=== PATIENT | female | born 1995 | race American Indian/Alaskan Native ===

== ENCOUNTER 2020-01-26 19:08 | Emergency (ER) | payer MEDICAID ==
--- NOTE | 2020-01-26 19:51 | Event Note ---
ED Screening Note Date of service: 01/26/20 Time: 19:50 ED Screening Note: Patient complains of abdominal pain and cramping times daily 14 weeks Denies vaginal bleeding or urinary symptoms This initial assessment/diagnostic orders/clinical plan/treatment(s) is/are subject to change based on patients health status, clinical progression and re- assessment by fellow clinical providers in the ED. Further treatment and workup at subsequent clinical providers discretion. Patient/guardian urged not to elope from the ED as their condition may be serious if not clinically assessed and managed. Initial orders include: Ultrasound Labs
[2020-01-26 20:38] LABS: Bacteria,Urine 1+ /HPF (Negative); Bilirubin,Urine NEG (Negative); Blood,Urine LG (Negative); Color,Urine Yellow (Yellow); Hyaline Casts,Urine 1 /LPF; Mucus,Urine 1+ /HPF; Protein,Urine <15 mg/dL mg/dL (Negative); Urobilinogen,Urine < 2.0 mg/dL (<2.0)
[2020-01-26 21:50] LABS: Basophils % (Auto) 0.1 % (0.0-1.8); Hematocrit 36.7 % (30.3-42.9); Hemoglobin 12.4 gm/dl (10.1-14.3); Lymphocytes # (Auto) 1.2 K/mm3 (1.2-5.4); Lymphocytes % (Auto) 5.8 % (13.4-35.0); Mean Corpuscular HGB Conc 34 % (30-34); Mean Corpuscular Volume 85 fl (79-97); Monocytes # (Auto) 0.8 K/mm3 (0.0-0.8); Monocytes % (Auto) 4.1 % (0.0-7.3); Platelet Count 267 K/mm3 (140-440); Red Blood Count 4.35 M/mm3 (3.65-5.03); Red Cell Distribution Width 13.1 % (13.2-15.2)
[2020-01-26 22:02] LABS: Alanine Aminotransferase 13 units/L (7-56); Blood Urea Nitrogen 4 mg/dL (7-17); Calcium 9.3 mg/dL (8.4-10.2); Hemolysis Index 2
[2020-01-26 22:09] LABS: BUN/Creatinine Ratio 7
--- NOTE | 2020-01-26 23:27 | Emergency Department Report ---
ED Female HPI - General Chief complaint: Abdominal Pain Stated complaint: 14 WEEKS , ABD PAIN, CHEST PAIN Time Seen by Provider: 01/26/20 19:48 Source: patient Mode of arrival: Ambulatory Limitations: No Limitations - History of Present Illness Initial comments: The patient was evaluated in the emergency department for symptoms described in the history of present illness. He/she was evaluated in the context of the global COVID-19 pandemic, which necessitated consideration that the patient might be at risk for infection with the virus that causes COVID-19. Institutional protocols and algorithms that pertain to the evaluation of patient s at risk for COVID-19 are in a state of rapid change based on information released by regulatory bodies including the CDC and federal and state organizations. These policies and algorithms were followed during the patient's care in the emergency department. Please note that these policies, procedures and recommendations changed on a rapid basis. 24-year-old -[place] female who reports she is 14 weeks comes in complaining of lower abdominal pain that started today. Patient complains of nausea and lightheadedness but no vomiting. 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 Patient reports her last menstrual period was October 16, 2019. She is 2 para 1. Patient denies any dysuria no vaginal bleeding no vaginal discharge. She does admit to chills no fevers nausea but no vomiting. She is followed by BUSINESS CONSULT Reyes Persaud and are stable. She reports her last BM was 11 AM. She reports that his upper back and chest pain as tightness with a deep breath while sitting. MD Complaint: pelvic pain Location: suprapubic, LLQ Radiation: non-radiating Severity: severe Severity scale (0 -10): 9 Quality: sharp, stabbing Consistency: constant Improves with: none Are you Now?: Yes Last Menstrual Period: 10/16/19 EDC: 07/22/20 Associated Symptoms: nausea/vomiting (No vomiting), fever/chills (No fever). denies: vaginal bleeding, dysuria, hematuria - Related Data Sexually active: Yes : 2 Para: 1 Previous Rx's Medication Instructions Recorded Last Taken Type Fluconazole (Nf) [Diflucan TAB] 150 mg PO ONCE #2 tablet 10/19/19 Unknown Rx Sulfamethoxazole/Trimethoprim 1 each PO BID #10 tablet 10/19/19 Unknown Rx [Bactrim DS TAB] miSOPROStoL [Cytotec] 800 mcg PO QID 1 Days #4 tablet 01/27/20 Unknown Rx Allergies Allergy/AdvReac Type Severity Reaction Status Date / Time Penicillins Allergy Unknown Verified 10/19/19 15:00 ED Review of Systems ROS: Stated complaint: 14 WEEKS , ABD PAIN, CHEST PAIN Other details as noted in HPI Comment: All other systems reviewed and negative Constitutional: chills Eyes: denies: eye pain, eye discharge, vision change ENT: denies: ear pain, throat pain Gastrointestinal: abdominal pain, nausea. denies: vomiting, diarrhea, constipation Genitourinary: denies: urgency, dysuria, discharge Musculoskeletal: back pain Psychiatric: denies: anxiety, depression Hematological/Lymphatic: denies: easy bleeding, easy bruising ED Past Medical Hx - Surgical History Hx Appendectomy: Yes - Social History Smoking Status: Never Smoker - Medications Home Medications: Home Medications Medication Instructions Recorded Confirmed Last Taken Type Fluconazole (Nf) [Diflucan TAB] 150 mg PO ONCE #2 tablet 10/19/19 Unknown Rx Sulfamethoxazole/Trimethoprim 1 each PO BID #10 tablet 10/19/19 Unknown Rx [Bactrim DS TAB] miSOPROStoL [Cytotec] 800 mcg PO QID 1 Days #4 tablet 01/27/20 Unknown Rx ED Physical Exam - General Limitations: No Limitations General appearance: alert, in no apparent distress - ENT ENT exam: Present: mucous membranes moist - Neck Neck exam: Present: normal inspection, full ROM - Respiratory Respiratory exam: Present: normal lung sounds bilaterally - GI/Abdominal GI/Abdominal exam: Present: soft, tenderness. Absent: distended - Extremities Exam Extremities exam: Present: full ROM - Back Exam Back exam: Present: normal inspection - Neurological Exam Neurological exam: Present: alert, oriented X3 ED Course Vital Signs 01/26/20 19:50 Temperature 98.3 F Pulse Rate 118 H Respiratory 18 Rate Blood Pressure 115/71 O2 Sat by Pulse 100 Oximetry - Reevaluation(s) Reevaluation #1: 01/27/20 01:[address] Villanueva BUSINESS CONSULT [phone] regarding patient he recommends Cytotec 200 mg today and then 800 mg tomorrow with patient to follow-up with her primary BUSINESS CONSULT tomorrow. Reevaluation #2: 01/27/20 02:[address] Villanueva BUSINESS CONSULT on-call informing the lactic acid 2.4. He states give her the Cytotec have her follow-up with her BUSINESS CONSULT in the morning. Patient appears to be stable afebrile normal vital signs. ED Medical Decision Making - Lab Data Result diagrams: 01/26/20 21:23 01/26/20 21:23 - Radiology Data Radiology results: report reviewed Referring Physician:CHANO ROJASPatient Name:URBAN DORANPatient ID:[id number] of :[id number]:FemaleAccession:[id number] Date:4734-02-31Legtgm Status:Finalized Findings [facility] [address] [place] [address] Ultrasound Report Signed Patient: URBAN DORAN MR#: [id number] : 1995 Acct:[id number] Age/Sex: 24 / F ADM Date: 01/26/20 Loc: ED Attending Dr: Ordering Physician: CHANO ROJAS Date of Service: 01/26/20 Procedure(s): US OB <= 14 weeks fetus Accession Number(s): [id number] cc: CHANO ROJAS ULTRASOUND OBSTETRIC INDICATION / CLINICAL INFORMATION: abdominal pain, 14 weeks . TECHNIQUE: Transabdominal. COMPARISON: None available. FINDINGS: GESTATIONAL SAC: Well-defined oval shape and intrauterine in location. YOLK SAC: No significant abnormality. EMBRYO/FETUS: No significant abnormality. - Osborne-Rump Length = 5.16 cm = 11.6 weeks.days - Heart Rate, beats per minute (if present) = none ADNEXA: No significant abnormality. FREE FLUID: None. ADDITIONAL FINDINGS: None. IMPRESSION: No heart movements identified, suggesting demise. Signer Name: Villa Menezes MD Signed: 01/27/2020 12:05 AM Workstation Name: [id number] Transcribed By: LORRAINE Dictated By: Villa Menezes MD Electronically Authenticated By: Villa Menezes MD Signed Date/Time: 01/27/20 0005 DD/ 0004 TD/TT: - Medical Decision Making 24-year-old -[place] female who reports she is 14 weeks comes in complaining of lower abdominal pain that started today. Patient complains of nausea and lightheadedness but no vomiting. 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 Patient reports her last menstrual period was October 16, 2019. She is 2 para 1. Patient denies any dysuria no vaginal bleeding no vaginal discharge. She does admit to chills no fevers nausea but no vomiting. She is followed by BUSINESS CONSULT Reyes Persaud and are stable. She reports her last BM was 11 AM. She reports that his upper back and chest pain as tightness with a deep breath while sitting. Critical care attestation.: If time is entered above; I have spent that time in minutes in the direct care of this critically ill patient, excluding procedure time. ED Disposition Clinical Impression: demise Disposition: DC-01 TO HOME OR SELFCARE Is pt being admited?: No Does the pt Need Aspirin: No Condition: Stable Instructions: Abdominal Pain (ED), Demise Additional Instructions: Take Cytotec tomorrow for pills. It is very important for you to follow-up with your BUSINESS CONSULT tomorrow. Tylenol as needed for pain. Prescriptions: miSOPROStoL [Cytotec] 800 mcg PO QID 1 Days #4 tablet Referrals: PRIMARY CAREMD [Primary Care Provider] - 3-5 Days Reyes Lerner BUSINESS CONSULT [Other] - 3-5 Days Forms: Work/School Release Form(ED)
[2020-01-26] MEDS ORDERED: ACETAMINOPHEN 325 MG TAB PO ONE (23:29)
--- NOTE | 2020-01-27 00:06 | Ultrasound Report ---
ULTRASOUND OBSTETRIC INDICATION / CLINICAL INFORMATION: abdominal pain, 14 weeks . TECHNIQUE: Transabdominal. COMPARISON: None available. FINDINGS: GESTATIONAL SAC: Well-defined oval shape and intrauterine in location. YOLK SAC: No significant abnormality. EMBRYO/FETUS: No significant abnormality. - Bonney-Rump Length = 5.16 cm = 11.6 weeks.days - Heart Rate, beats per minute (if present) = none ADNEXA: No significant abnormality. FREE FLUID: None. ADDITIONAL FINDINGS: None. IMPRESSION: No heart movements identified, suggesting demise. Signer Name: Villa Menezes MD Signed: 01/27/2020 12:05 AM Workstation Name: [email or web address]
[2020-01-27 01:29] VITALS: BP 129/62
[2020-01-27] MEDS: miSOPROStol 200 MCG TAB PO ONE ×2 (01:47→01:49)
== END 2020-01-27 02:15 | disposition home or self-care (01) ==
LOC: ED 19:08
DX: O36.4XX0 Maternal care for intrauterine death, not applicable or unspecified (principal); Z3A.14 14 weeks gestation of pregnancy; Z90.49 Acquired absence of other specified parts of digestive tract; Z79.899 Other long term (current) drug therapy; Z88.0 Allergy status to penicillin
CPT/HCPCS: 36415; 76801; 80053; 81001; 82140; 83690; 84702; 85025; 87210; 87591

== ENCOUNTER 2020-01-27 11:01 | Emergency (ER) | payer SELFPAY ==
[2020-01-27 11:25] LABS: Basophils # (Auto) 0.1 K/mm3 (0.0-0.1); Basophils % (Auto) 0.3 % (0.0-1.8); Eosinophils % (Auto) 0.1 % (0.0-4.3); Hematocrit 31.2 % (30.3-42.9); Lymphocytes # (Auto) 2.4 K/mm3 (1.2-5.4); Mean Corpuscular HGB Conc 35 % (30-34); Mean Corpuscular Volume 83 fl (79-97); Monocytes # (Auto) 0.9 K/mm3 (0.0-0.8); Platelet Count 273 K/mm3 (140-440); Red Blood Count 3.74 M/mm3 (3.65-5.03); Red Cell Distribution Width 13.2 % (13.2-15.2)
--- NOTE | 2020-01-27 11:25 | Emergency Department Report ---
Blank Doc - Documentation Documentation: 24-year-old female that presents with near syncope, dizziness, and weakness. Patient was seen last night in the ED and started to have vaginal bleeding with clots this morning. This initial assessment/diagnostic orders/clinical plan/treatment(s) is/are subject to change based on patient's health status, clinical progression and re- assessment by fellow clinical providers in the ED. Further treatment and workup at subsequent clinical providers discretion. Patient/guardians urged not to elope from the ED as their condition may be serious if not clinically assessed and managed. Initial orders include: 1- Patient sent to [facility] for further evaluation and treatment 2- labs 3- UA 4- US OB
[2020-01-27 11:47] LABS: Alanine Aminotransferase 11 units/L (7-56); Albumin 3.6 g/dL (3.9-5); Blood Urea Nitrogen 5 mg/dL (7-17); Hemolysis Index 2
[2020-01-27 11:49] LABS: BUN/Creatinine Ratio 7
--- NOTE | 2020-01-27 12:26 | Emergency Department Report ---
ED General Adult HPI - General Chief complaint: Syncope Stated complaint: BODY ACHES Time Seen by Provider: 01/27/20 11:04 Source: patient Mode of arrival: Ambulatory Limitations: No Limitations - History of Present Illness Initial comments: This is a 24-year-old female presenting for evaluation of syncope and heavy vaginal bleeding. She reports that she was seen here last night and review of records shows that she was seen here due to abdominal pain and , ultrasound showed a nonviable at 11 weeks and her OB was consulted who requested Cytotec and outpatient follow-up today. She says she has not yet made up follow-up appointment. She returns this morning because she has had heavy vaginal bleeding since about 3 AM and actually had a syncopal episode. She states she did not injure herself during that episode and states that she continues to have lower abdominal discomfort along with vaginal bleeding with clots. Onset gradual, severity moderate to severe, no modifying factors. Severity scale (0 -10): 0 - Related Data Previous Rx's Medication Instructions Recorded Last Taken Type Fluconazole (Nf) [Diflucan TAB] 150 mg PO ONCE #2 tablet 10/19/19 Unknown Rx Sulfamethoxazole/Trimethoprim 1 each PO BID #10 tablet 10/19/19 Unknown Rx [Bactrim DS TAB] Methylergonovine [Methergine] 0.2 mg PO Q8HR #14 tablet 01/27/20 Unknown Rx miSOPROStoL [Cytotec] 800 mcg PO QID 1 Days #4 tablet 01/27/20 Unknown Rx Allergies Allergy/AdvReac Type Severity Reaction Status Date / Time Penicillins Allergy Unknown Verified 10/19/19 15:00 ED Review of Systems ROS: Stated complaint: BODY ACHES Other details as noted in HPI Comment: All other systems reviewed and negative Genitourinary: as per HPI ED Past Medical Hx - Surgical History Hx Appendectomy: Yes - Social History Smoking Status: Never Smoker - Medications Home Medications: Home Medications Medication Instructions Recorded Confirmed Last Taken Type Fluconazole (Nf) [Diflucan TAB] 150 mg PO ONCE #2 tablet 10/19/19 Unknown Rx Sulfamethoxazole/Trimethoprim 1 each PO BID #10 tablet 10/19/19 Unknown Rx [Bactrim DS TAB] Methylergonovine [Methergine] 0.2 mg PO Q8HR #14 tablet 01/27/20 Unknown Rx miSOPROStoL [Cytotec] 800 mcg PO QID 1 Days #4 tablet 01/27/20 Unknown Rx ED Physical Exam - General Limitations: No Limitations General appearance: alert, in no apparent distress - Head Head exam: Present: atraumatic, normocephalic - Eye Eye exam: Present: normal appearance - ENT ENT exam: Present: mucous membranes moist - Neck Neck exam: Present: normal inspection - Respiratory Respiratory exam: Present: normal lung sounds bilaterally. Absent: respiratory distress - Cardiovascular Cardiovascular Exam: Present: regular rate, normal rhythm. Absent: systolic murmur, diastolic murmur, rubs, gallop - GI/Abdominal GI/Abdominal exam: Present: soft, tenderness (Mild lower abdominal), normal bowel sounds. Absent: distended, guarding, rebound - Extremities Exam Extremities exam: Present: normal inspection - Back Exam Back exam: Present: normal inspection - Neurological Exam Neurological exam: Present: alert, oriented X3 - Psychiatric Psychiatric exam: Present: normal affect, normal mood - Skin Skin exam: Present: warm, dry, intact, normal color. Absent: rash ED Course Vital Signs 01/27/20 01/27/20 01/27/20 11:08 14:49 15:34 Temperature 98.2 F Pulse Rate 103 H 97 H Respiratory 19 18 Rate Blood Pressure 108/68 Blood Pressure 106/77 [Right] O2 Sat by Pulse 98 99 98 Oximetry ED Medical Decision Making - Lab Data Result diagrams: 01/27/20 11:11 01/27/20 11:11 - Radiology Data Radiology results: report reviewed Thickened heterogeneous endometrium - Medical Decision Making Patient presenting with heavy vaginal bleeding after being given Cytotec last night due to a nonviable . She also had a syncopal episode but no injury. Exam here reveals lower abdominal tenderness but no rigidity. She is nontoxic in appearance and in no distress. We will check labs, repeat ultrasound. Ultrasound shows thickened heterogeneous endometrium, hCG has decreased. Her vital signs remained stable, her hemoglobin has dropped from 12.4-11 though this does not seem significant at this time. I did perform a pelvic exam chaperoned by Nirmala lopez rate engineer which does reveal a moderate amount of bleeding with a few clots noted in the canal. This is expected after taking Cytotec. I attempted to place multiple calls to ELECTROLYSIS NEEDLE OPERATOR on-call with no call back. She does see a different ELECTROLYSIS NEEDLE OPERATOR group that does not come to this facility and they did tell her that they could see her on Friday but that is the earliest appointment that they have. I discussed her findings today with my attending physician, Dr. Cedeño who recommends Methergine and outpatient follow-up. I discussed return precautions with the patient and she agrees with this plan. - Differential Diagnosis Miscarriage, incomplete miscarriage, anemia Critical care attestation.: If time is entered above; I have spent that time in minutes in the direct care of this critically ill patient, excluding procedure time. ED Disposition Clinical Impression: Miscarriage Disposition: DC- TO HOME OR SELFCARE Is pt being admited?: No Condition: Stable Instructions: Miscarriage Prescriptions: Methylergonovine [Methergine] 0.2 mg PO Q8HR #14 tablet Referrals: PRIMARY CAREMD [Primary Care Provider] - 3-5 Days ARGELIA AMADOR MD [Staff Physician] - 24 Hours Time of Disposition: 16:35
--- NOTE | 2020-01-27 15:30 | Ultrasound Report ---
ULTRASOUND PELVIS INDICATION / CLINICAL INFORMATION: vaginal bleeding. TECHNIQUE: Transvaginal Duplex Color Doppler used: Yes. COMPARISON: None available FINDINGS: UTERUS: Uterus appears enlarged. The endometrial stripe is thickened and heterogeneous, measuring up to 2.8 cm. RIGHT ADNEXA: No significant ovarian cyst or mass. Normal color Doppler blood flow. LEFT ADNEXA: No significant ovarian cyst or mass. Normal color Doppler blood flow. FREE FLUID: None. ADDITIONAL FINDINGS: None. IMPRESSION: 1. Thickened and heterogeneous endometrial stripe, which likely physiologic in a patient this age. 2. Normal sonographic appearance of the ovaries. Signer Name: Diaz Martel MD Signed: 01/27/2020 3:26 PM Workstation Name: [email or web address]
[2020-01-27 15:36] VITALS: BP 108/68
[2020-01-27] MEDS ORDERED: METHYLERGONOVINE 0.2 MG TABLET PO ONE (16:05)
--- NOTE | 2020-01-27 18:24 | Ultrasound Report ---
Please see concurrent transvaginal ultrasound report (AND ADDENDUM) for further details. Signer Name: Diaz Martel MD Signed: 01/27/2020 6:20 PM Workstation Name: [id number]
== END 2020-01-27 16:50 | disposition home or self-care (01) ==
LOC: ED 11:01
DX: O03.9 Complete or unspecified spontaneous abortion without complication (principal); Z90.49 Acquired absence of other specified parts of digestive tract; Z79.899 Other long term (current) drug therapy; Z88.0 Allergy status to penicillin; Z3A.11 11 weeks gestation of pregnancy
CPT/HCPCS: 36415; 76830; 76856; 80053; 84702; 85025; 86850; 86900; 86901

== ENCOUNTER 2020-03-26 15:18 | Emergency (ER) | payer SELFPAY ==
[2020-03-26 15:36] VITALS: BP 115/80
--- NOTE | 2020-03-26 15:46 | Emergency Department Report ---
ED Upper Extremity Inj HPI - General Chief Complaint: Shoulder Injury Stated Complaint: RT ARM PAIN Time Seen by Provider: 03/26/20 15:36 Source: patient Mode of arrival: Ambulatory Limitations: No Limitations - History of Present Illness Initial Comments: Patient is a 24-year-old female presents emergency room complaints of right shoulder pain that began yesterday. She states last night she was rollerskating and she accidentally tripped with her skates on and tried to catch herself against the wall and fell and hit her right shoulder on the ground. She states since then she has had right shoulder pain. She denies ever injuring in the past. She denies any numbness or weakness. No past medical history. No allergies to medications. Allergy to penicillin. [facility] 03/03/2020 - Related Data Previous Rx's Medication Instructions Recorded Last Taken Type Fluconazole (Nf) [Diflucan TAB] 150 mg PO ONCE #2 tablet 10/19/19 Unknown Rx Sulfamethoxazole/Trimethoprim 1 each PO BID #10 tablet 10/19/19 Unknown Rx [Bactrim DS TAB] Methylergonovine [Methergine] 0.2 mg PO Q8HR #14 tablet 01/27/20 Unknown Rx miSOPROStoL [Cytotec] 800 mcg PO QID 1 Days #4 tablet 01/27/20 Unknown Rx Menthol/Camphor [[place] 1 applicatio TP BID #18 oint...g. 03/26/20 Unknown Rx Ointment] Naproxen [EC-Naprosyn] 500 mg PO BID PRN #14 tablet. 03/26/20 Unknown Rx Allergies Allergy/AdvReac Type Severity Reaction Status Date / Time Penicillins Allergy Unknown Verified 10/19/19 15:00 ED Review of Systems ROS: Stated complaint: RT ARM PAIN Other details as noted in HPI Comment: All other systems reviewed and negative ED Past Medical Hx - Past Medical History Previous Medical History?: No - Surgical History Past Surgical History?: Yes Hx Appendectomy: Yes - Social History Smoking Status: Never Smoker Substance Use Type: Alcohol - Medications Home Medications: Home Medications Medication Instructions Recorded Confirmed Last Taken Type Fluconazole (Nf) [Diflucan TAB] 150 mg PO ONCE #2 tablet 10/19/19 Unknown Rx Sulfamethoxazole/Trimethoprim 1 each PO BID #10 tablet 10/19/19 Unknown Rx [Bactrim DS TAB] Methylergonovine [Methergine] 0.2 mg PO Q8HR #14 tablet 01/27/20 Unknown Rx miSOPROStoL [Cytotec] 800 mcg PO QID 1 Days #4 tablet 01/27/20 Unknown Rx Menthol/Camphor [[place] 1 applicatio TP BID #18 oint...g. 03/26/20 Unknown Rx Ointment] Naproxen [EC-Naprosyn] 500 mg PO BID PRN #14 tablet. 03/26/20 Unknown Rx ED Physical Exam - General Limitations: No Limitations General appearance: alert, in no apparent distress - Head Head exam: Present: atraumatic, normocephalic - Eye Eye exam: Present: normal appearance - ENT ENT exam: Present: mucous membranes moist - Respiratory Respiratory exam: Absent: respiratory distress, accessory muscle use - Extremities Exam Extremities exam: Present: other (ttp to the right lateral shoulder and right posterior shoulder, no AC joint ttp, no clavicular ttp, clavicles are equal, no sulcus sign, FROM of the RUE, no deformity, no ecchymosis, no edema, pain with full flexion of the right shoulder, neurovascularly intact) - Neurological Exam Neurological exam: Present: alert, oriented X3 - Psychiatric Psychiatric exam: Present: normal affect, normal mood - Skin Skin exam: Present: warm, dry, intact ED Course Vital Signs 03/26/20 15:25 Temperature 99.1 F Pulse Rate 106 H Respiratory 22 Rate Blood Pressure 115/80 O2 Sat by Pulse 98 Oximetry ED Medical Decision Making - Radiology Data Radiology results: report reviewed Ordering Physician: ANNIE LAINEZ Date of Service: 03/26/20 Procedure(s): XR shoulder 2+V RT Accession Number(s): [id number] cc: ANNIE LAINEZ Fluoro Time In Minutes: XR shoulder 2+V RT INDICATION: right shoulder pain after fall. COMPARISON: No relevant prior imaging study available. FINDINGS: No acute skeletal abnormality. No significant soft tissue abnormality. IMPRESSION: 1. No acute findings. Signer Name: Álvaro Putnam MD Signed: 03/26/2020 5:01 PM Workstation Name: [id number] Transcribed By: DIANA Dictated By: Álvaro Putnam MD Electronically Authenticated By: Álvaro Putnam MD Signed Date/Time: 03/26/201700 DD/ 00 TD/TT: - Medical Decision Making Patient is a 24-year-old female presents emergency room complaints of right shoulder pain that began yesterday. She states last night she was rollerskating and she accidentally tripped with her skates on and tried to catch herself against the wall and fell and hit her right shoulder on the ground. She states since then she has had right shoulder pain. She denies ever injuring in the past. She denies any numbness or weakness. No past medical history. No allergies to medications. Allergy to penicillin. [facility] 03/03/2020. VSS. on exam: ttp to the right lateral shoulder and right posterior shoulder, no AC joint ttp, no clavicular ttp, clavicles are equal, no sulcus sign, FROM of the RUE, no deformity, no ecchymosis, no edema, pain with full flexion of the right shoulder, neurovascularly intact. XR right shoulder:1. No acute findings. Discussed x-ray findings with patient. Discussed importance of follow-up. Discussed return precautions. Patient given prescription for naproxen and [place] balm ointment. Advised patient Please use medication as prescribed as needed. May use ice for 15 minutes at a time, rest, elevation of the arm. Follow-up with orthopedic doctor. Return to emergency room for any new or worsening symptoms. Critical care attestation.: If time is entered above; I have spent that time in minutes in the direct care of this critically ill patient, excluding procedure time. ED Disposition Clinical Impression: Right shoulder pain Qualifiers: Chronicity: acute Qualified Code(s): M25.511 - Pain in right shoulder Fall Qualifiers: Encounter type: initial encounter Qualified Code(s): W19.XXXA - Unspecified fall, initial encounter Disposition: - TO HOME OR SELFCARE Is pt being admited?: No Does the pt Need Aspirin: No Condition: Stable Instructions: Shoulder Pain Additional Instructions: Please use medication as prescribed as needed. May use ice for 15 minutes at a time, rest, elevation of the arm. Follow-up with orthopedic doctor. Return to emergency room for any new or worsening symptoms. Prescriptions: Naproxen [EC-Naprosyn] 500 mg PO BID PRN #14 tablet.dr BROOKS Reason: pain Menthol/Camphor [[place] Ointment] 1 applicatio TP BID #18 oint...g. Referrals: PRIMARY CAREMD [Primary Care Provider] - 3-5 Days [facility] [Provider Group] - 3-5 Days SOBIA FOX MD [Staff Physician] - 3-5 Days Forms: Work/School Release Form(ED) Time of Disposition: 17:17 Print Language: ZAMBIAN
[2020-03-26 16:34] LABS: HCG Qualitative,Urine Negative (Negative)
--- NOTE | 2020-03-26 17:05 | XRay Report ---
XR shoulder 2+V RT INDICATION: right shoulder pain after fall. COMPARISON: No relevant prior imaging study available. FINDINGS: No acute skeletal abnormality. No significant soft tissue abnormality. IMPRESSION: 1. No acute findings. Signer Name: Álvaro Putnam MD Signed: 03/26/2020 5:01 PM Workstation Name: [id number]
== END 2020-03-26 17:38 | disposition home or self-care (01) ==
LOC: ED 15:18
DX: M25.511 Pain in right shoulder (principal); Z88.0 Allergy status to penicillin; Z79.899 Other long term (current) drug therapy; Z90.49 Acquired absence of other specified parts of digestive tract; W01.0XXA Fall on same level from slipping, tripping and stumbling without subsequent striking against object, initial encounter; Y93.51 Activity, roller skating (inline) and skateboarding; Y92.89 Other specified places as the place of occurrence of the external cause; Y99.8 Other external cause status
CPT/HCPCS: 81025

== ENCOUNTER 2020-05-10 06:38 | Emergency (ER) | payer MEDICAID ==
--- NOTE | 2020-05-10 06:47 | Event Note ---
ED Screening Note Date of service: 05/10/20 Time: 06:44 ED Screening Note: pt is a 4 y/o aaf who presents for complain of abdminal pain and cramping x symptoms are rated at 4/10 , exacerbated by nothing, relieved by nothing, symptoms are exacerbating migraine headaches, chronic condition. there has been no fever or chills, LMP 2 weeks ago This initial assessment/diagnostic orders/clinical plan/treatment(s) is/are subject to change based on patients health status, clinical progression and re- assessment by fellow clinical providers in the ED. Further treatment and workup at subsequent clinical providers discretion. Patient/guardian urged not to elope from the ED as their condition may be serious if not clinically assessed and managed. Initial orders include: ua, hcg
[2020-05-10 07:41] LABS: HCG Qualitative,Urine Negative (Negative)
[2020-05-10 07:50] LABS: Bacteria,Urine 2+ /HPF (Negative); Bilirubin,Urine NEG (Negative); Blood,Urine MOD (Negative); Color,Urine Yellow (Yellow); Mucus,Urine FEW /HPF; Protein,Urine <15 mg/dL mg/dL (Negative); Urobilinogen,Urine < 2.0 mg/dL (<2.0)
--- NOTE | 2020-05-10 08:18 | Emergency Department Report ---
ED Headache HPI - General Chief Complaint: Headache Stated Complaint: HEADACHE;STOMACH CRAMPS Time Seen by Provider: 05/10/20 07:46 Source: patient Exam Limitations: no limitations - History of Present Illness Initial Comments: 24-year-old female presents to ED with headache x2 weeks. Patient reports she has had a history of chronic headaches since she was a child. Patient states the headaches went away for several years, however returned 2 weeks ago. Patient states headache is located in a bandlike area around her head, pressure- like in the bilateral temples. Patient reports associated nausea. She denies vomiting, fever, neck pain, visual changes, URI symptoms. She denies any Covid symptoms or any known exposure to anyone who has tested positive for COVID-19. Patient reports some mild intermittent dizziness. She states her headache is usually improved when she wakes up, however worsens every day around noon. Patient states she takes extra strength Tylenol which seems to help. She also reports some lower abdominal and lower back pain with associated urinary frequency. She denies any dysuria, hematuria, vaginal discharge or bleeding. She denies any missed periods. Timing/Duration: other (2 weeks) Quality: moderate, pressure Modifying Factors: improves with: medication (tylenol) Associated Symptoms: denies: fever/chills, nausea/vomiting, nasal congestion, stiff neck, vision changes, weakness Allergies/Adverse Reactions: Allergies Penicillins Allergy (Verified 10/19/19 15:00) Unknown Home Medications: Ambulatory Orders Fluconazole (Nf) [Diflucan TAB] 150 mg PO ONCE #2 tablet 10/19/19 Sulfamethoxazole/Trimethoprim [Bactrim DS TAB] 1 each PO BID #10 tablet 10/19/19 Methylergonovine [Methergine] 0.2 mg PO Q8HR #14 tablet 01/27/20 miSOPROStoL [Cytotec] 800 mcg PO QID 1 Days #4 tablet 01/27/20 Menthol/Camphor [Isabel Horatio Ointment] 1 applicatio TP BID #18 oint...g. 03/26/20 Naproxen [EC-Naprosyn] 500 mg PO BID PRN #14 tablet 03/26/20 Butalb/Acetamin/Caff 50-325-40 [Fioricet] 1 tab PO Q6HR PRN #10 tab 05/10/20 Naproxen [Naprosyn] 500 mg PO BID #20 tablet 05/10/20 Sulfamethoxazole/Trimethoprim [Bactrim DS TAB] 1 each PO BID #6 tablet 05/10/20 ED Review of Systems ROS: Stated complaint: HEADACHE;STOMACH CRAMPS Other details as noted in HPI Comment: All other systems reviewed and negative Constitutional: denies: chills, fever Respiratory: denies: cough Gastrointestinal: abdominal pain, nausea. denies: vomiting Genitourinary: frequency. denies: dysuria, discharge Musculoskeletal: back pain ED Past Medical Hx - Past Medical History Previous Medical History?: Yes Hx Headaches / Migraines: Yes - Surgical History Past Surgical History?: Yes Hx Appendectomy: Yes - Social History Smoking Status: Never Smoker Substance Use Type: Alcohol - Medications Home Medications: Home Medications Medication Instructions Recorded Confirmed Last Taken Type Fluconazole (Nf) [Diflucan TAB] 150 mg PO ONCE #2 tablet 10/19/19 Unknown Rx Sulfamethoxazole/Trimethoprim 1 each PO BID #10 tablet 10/19/19 Unknown Rx [Bactrim DS TAB] Methylergonovine [Methergine] 0.2 mg PO Q8HR #14 tablet 01/27/20 Unknown Rx miSOPROStoL [Cytotec] 800 mcg PO QID 1 Days #4 tablet 01/27/20 Unknown Rx Menthol/Camphor [Isabel Horatio 1 applicatio TP BID #18 oint...g. 03/26/20 Unknown Rx Ointment] Naproxen [EC-Naprosyn] 500 mg PO BID PRN #14 tablet. 03/26/20 Unknown Rx Butalb/Acetamin/Caff 50-325-40 1 tab PO Q6HR PRN #10 tab 05/10/20 Unknown Rx [Fioricet] Naproxen [Naprosyn] 500 mg PO BID #20 tablet 05/10/20 Unknown Rx Sulfamethoxazole/Trimethoprim 1 each PO BID #6 tablet 05/10/20 Unknown Rx [Bactrim DS TAB] ED Physical Exam - General Limitations: No Limitations General appearance: alert, in no apparent distress - Head Head exam: Present: atraumatic, normocephalic - Eye Eye exam: Present: normal appearance, PERRL, EOMI Pupils: Present: normal accommodation - ENT ENT exam: Present: mucous membranes moist - Neck Neck exam: Present: normal inspection, full ROM. Absent: tenderness, meningismus - Respiratory Respiratory exam: Present: normal lung sounds bilaterally. Absent: respiratory distress - Cardiovascular Cardiovascular Exam: Present: regular rate, normal rhythm - GI/Abdominal GI/Abdominal exam: Present: soft, tenderness (suprapubic). Absent: distended - Extremities Exam Extremities exam: Present: normal inspection - Back Exam Back exam: Absent: CVA tenderness (R), CVA tenderness (L) - Neurological Exam Neurological exam: Present: alert, oriented X3, CN II-XII intact, normal gait. Absent: motor sensory deficit - Psychiatric Psychiatric exam: Present: normal affect, normal mood - Skin Skin exam: Present: warm, dry, intact, normal color ED Course Vital Signs 05/10/20 05/10/20 05/10/20 07:56 07:59 10:11 Temperature 98 F Pulse Rate 72 78 Respiratory 16 16 Rate Blood Pressure 109/80 106/77 [right arm] O2 Sat by Pulse 100 Oximetry ED Medical Decision Making - Radiology Data Radiology results: report reviewed, image reviewed - Medical Decision Making 24-year-old female with headache and abdominal pain x2 weeks. Patient has no neuro deficits on exam. Vital signs are stable. CT head negative for any acute findings. UA does show evidence of UTI. Patient has no CVA tenderness on exam. IV fluids, Toradol, and Fioricet given here in ED. Patient is feeling much better at this time. Will discharge with prescriptions. Outpatient follow-up advised, return precautions given. - Differential Diagnosis Migraine headache, tension headache, , UTI, intracranial abnormali Critical care attestation.: If time is entered above; I have spent that time in minutes in the direct care of this critically ill patient, excluding procedure time. ED Disposition Clinical Impression: Headache, UTI (urinary tract infection) Disposition: - TO HOME OR SELFCARE Is pt being admited?: No Condition: Stable Instructions: General Headache Without Cause, Urinary Tract Infection, Adult, [id number] Prescriptions: Sulfamethoxazole/Trimethoprim [Bactrim DS TAB] 1 each PO BID #6 tablet Butalb/Acetamin/Caff 50-325-40 [Fioricet] 1 tab PO Q6HR PRN #10 tab PRN Reason: Headache Naproxen [Naprosyn] 500 mg PO BID #20 tablet Referrals: PRIMARY CARE, [Primary Care Provider] - 3-5 Days Forms: Work/School Release Form(ED) Time of Disposition: 10:21
[2020-05-10] MEDS ORDERED: BUTALB/ACETAMINOPHEN/CAFFEINE TAB PO ONE (08:23)
[2020-05-10] MEDS ORDERED: SODIUM CHLORIDE 0.9% 1000 ML 1,000 ML IV ONE (08:23)
[2020-05-10] MEDS ORDERED: KETOROLAC 30 MG/1 ML INJ IV ONE (08:23)
--- NOTE | 2020-05-10 08:55 | Cat Scan Report ---
CT BRAIN: 05/10/2020 INDICATION / CLINICAL INFORMATION: headache. COMPARISON: None available. FINDINGS: BRAIN/INTRACRANIAL STRUCTURES: Unenhanced CT images of the brain demonstrate no evidence of acute int racranial abnormality. Ventricles and sulci are normal in size and shape. There is no CT evidence of acute ischemic injury, hemorrhage, or mass. There are no abnormal extra-ax ial fluid collections. EXTRACRANIAL STRUCTURES: Unremarkable. IMPRESSION: No acute abnormality. Negative unenhanced CT of the brain. All CT scans at this location are performed using dose reduction to ALARA by means of automated expos ure control. Signer Name: Rey La MD Signed: 05/10/2020 8:51 AM Workstation Name: [id number]
[2020-05-10 10:12] VITALS: BP 106/77
== END 2020-05-10 11:19 | disposition home or self-care (01) ==
LOC: ED 06:38
DX: N39.0 Urinary tract infection, site not specified (principal); R51.9 Headache, unspecified; Z79.899 Other long term (current) drug therapy; Z88.0 Allergy status to penicillin; Z90.49 Acquired absence of other specified parts of digestive tract
CPT/HCPCS: 70450; 81001; 81025; 96361; 96374; 99284; J1885; J7030

== ENCOUNTER 2020-07-20 09:57 | Emergency (ER) | payer MEDICAID | END 2020-07-20 14:15 | disposition home or self-care (01) | LOC: ED 09:57 | CPT/HCPCS: 36415; 76801; 76817; 80053; 81001; 84702; 85025; 86900; 86901; 87076; 87086; 87186 ==

== ENCOUNTER 2020-10-18 10:07 | Emergency (ER) | payer MEDICAID ==
[2020-10-18 10:26] VITALS: BP 116/78
--- NOTE | 2020-10-18 13:34 | Emergency Department Report ---
ED Extremity Problem HPI - General Chief complaint: Extremity Problem,Nontraumatic Stated complaint: LT FOOT SWOLLEN Time Seen by Provider: 10/18/20 13:24 Source: patient Mode of arrival: Ambulatory Limitations: No Limitations - History of Present Illness Initial comments: Patient is a 25-year-old female presents emergency room complaints of left ankle pain and swelling that began a few days ago. She states that the pain does radiate up and occasionally she feels cramps in her calf. 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 She denies any chest pain, shortness of breath, fever, nausea, vomiting, diarrhea, numbness, weakness, pleuritic pain, hemoptysis. she denies any recent surgery or hormone use. No past medical history. Allergy to penicillin. Last menstrual cycle 09/25/20 - Related Data Previous Rx's Medication Instructions Recorded Last Taken Type cephALEXin [Keflex] 500 mg PO Q6HR #40 capsule 07/20/20 Unknown Rx Allergies Allergy/AdvReac Type Severity Reaction Status Date / Time Penicillins Allergy Unknown Verified 10/19/19 15:00 ED Review of Systems ROS: Stated complaint: LT FOOT SWOLLEN Other details as noted in HPI Comment: All other systems reviewed and negative ED Past Medical Hx - Past Medical History Previous Medical History?: Yes Hx Headaches / Migraines: Yes - Surgical History Hx Appendectomy: Yes Additional Surgical History: miscarriage - Social History Smoking Status: Never Smoker Substance Use Type: None - Medications Home Medications: Home Medications Medication Instructions Recorded Confirmed Last Taken Type cephALEXin [Keflex] 500 mg PO Q6HR #40 capsule 07/20/20 Unknown Rx ED Physical Exam - General Limitations: No Limitations General appearance: alert, in no apparent distress - Head Head exam: Present: atraumatic, normocephalic - Eye Eye exam: Present: normal appearance - ENT ENT exam: Present: mucous membranes moist - Respiratory Respiratory exam: Absent: respiratory distress, accessory muscle use - Extremities Exam Extremities exam: Present: other (trace edema present to the left ankle region, no bony ttp of the LLE, FROM of the LLE, mild calf ttp, neurovascularly intact, no skin changes) - Neurological Exam Neurological exam: Present: alert, oriented X3 - Psychiatric Psychiatric exam: Present: normal affect, normal mood - Skin Skin exam: Present: warm, dry, intact ED Course Vital Signs 10/18/20 10/18/20 10:24 10:25 Temperature 98.2 F Pulse Rate 97 H Respiratory 16 Rate Blood Pressure 116/78 [Left] O2 Sat by Pulse 95 Oximetry ED Medical Decision Making - Lab Data Result diagrams: 10/18/20 13:36 10/18/20 13:36 Lab Results 10/18/20 10/18/20 10/18/20 Range/Units 13:36 13:36 13:36 WBC 7.8 (4.5-11.0) K/mm3 RBC 4.77 (3.65-5.03) M/mm3 Hgb 11.3 (10.1-14.3) gm/dl Hct 35.9 (30.3-42.9) % MCV 75 L (79-97) fl MCH 24 L (28-32) pg MCHC 31 (30-34) % RDW 16.7 H (13.2-15.2) % Plt Count 356 (140-440) K/mm3 Lymph % (Auto) 37.1 H (13.4-35.0) % Sherman % (Auto) 8.6 H (0.0-7.3) % Eos % (Auto) 1.5 (0.0-4.3) % Baso % (Auto) 0.5 (0.0-1.8) % Lymph # (Auto) 2.9 (1.2-5.4) K/mm3 Sherman # (Auto) 0.7 (0.0-0.8) K/mm3 Eos # (Auto) 0.1 (0.0-0.4) K/mm3 Baso # (Auto) 0.0 (0.0-0.1) K/mm3 Seg Neutrophils % 52.3 (40.0-70.0) % Seg Neutrophils # 4.0 (1.8-7.7) K/mm3 Sodium 137 (137-145) mmol/L Potassium 4.6 (3.6-5.0) mmol/L Chloride 102.9 (98-107) mmol/L Carbon Dioxide 24 (22-30) mmol/L Anion Gap 15 mmol/L BUN 8 (7-17) mg/dL Creatinine 0.8 (0.6-1.2) mg/dL Estimated GFR > 60 ml/min BUN/Creatinine Ratio 10 % Glucose 88 (65-100) mg/dL Calcium 9.7 (8.4-10.2) mg/dL Total Bilirubin 0.50 (0.1-1.2) mg/dL AST 19 (5-40) units/L ALT 18 (7-56) units/L Alkaline Phosphatase 78 (35-129) units/L NT-Pro-B Natriuret Pep < 5 (0-450) pg/mL Total Protein 7.4 (6.3-8.2) g/dL Albumin 4.2 (3.9-5) g/dL Albumin/Globulin Ratio 1.3 % HCG, Qual Negative (Negative) - Radiology Data Radiology results: report reviewed Ordering Physician: ANNIE LAINEZ Date of Service: 10/18/20 Procedure(s): XR ankle 3+V LT Accession Number(s): [id number] cc: ANNIE LAINEZ Fluoro Time In Minutes: Left ankle radiograph, 3 views HISTORY: Pain COMPARISON: None FINDINGS: No acute fracture or malalignment. Ankle mortise and talar dome are intact. There is mild soft tissue swelling about the ankle, greatest medially. No soft tissue gas or radiopaque foreign body. IMPRESSION: Preferential medial ankle soft tissue swelling. No acute osseous abnormality. Signer Name: Karley Martel MD Signed: 10/18/2020 2:20 PM Workstation Name: [id number] Transcribed By: JS Dictated By: KARLEY MARTEL MD Electronically Authenticated By: KARLEY MARTEL MD Signed Date/Time: 10/18/20 142 DD/ 142 TD/TT: Print Ordering Physician: ANNIE LAINEZ Date of Service: 10/18/20 Procedure(s): VL venous duplex LE LT Accession Number(s): [id number] cc: ANNIE LAINEZ DUPLEX DOPPLER LOWER EXTREMITY VEINS, LEFT INDICATION / CLINICAL INFORMATION: left leg swelling, calf pain. TECHNIQUE: Duplex doppler imaging was performed through the veins of the left lower extremity using venous compression and other maneuvers. COMPARISON: None available. FINDINGS: LEFT COMMON FEMORAL VEIN: Negative. LEFT FEMORAL VEIN: Negative. LEFT POPLITEAL VEIN: Negative. LEFT CALF VEINS: Negative. ADDITIONAL FINDINGS: None. IMPRESSION: 1. No sonographic evidence for DVT in the left lower extremity. Signer Name: Larry Jain MD Signed: 10/18/2020 2:03 PM Workstation Name: [email or web address] Transcribed By: GOOD Dictated By: MELISSA JAIN MD Electronically Authenticated By: MELISSA JAIN MD Signed Date/Time: 10/18/20 140 DD/ 01 TD/TT: - Medical Decision Making Patient is a 25-year-old female presents emergency room complaints of left ankle pain and swelling that began a few days ago. She states that the pain does radiate up and occasionally she feels cramps in her calf. 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 She denies any chest pain, shortness of breath, fever, nausea, vomiting, diarrhea, numbness, weakness, pleuritic pain, hemoptysis. she denies any recent surgery or hormone use. No past medical history. Allergy to penicillin. Last menstrual cycle 09/25/20. Vitals are normal. On exam:trace edema present to the left ankle region, no bony ttp of the LLE, FROM of the LLE, mild calf ttp, neurovascularly intact, no skin changes. US doppler LLE: 1. No sonographic evidence for DVT in the left lower extremity. XR left ankle: IMPRESSION: Preferential medial ankle soft tissue swelling. No acute osseous abnormality. No signs of skin changes, no signs of cellulitis or septic joint. Patient has trace edema surrounding the left ankle. Advised patient May take Tylenol or ibuprofen as needed for discomfort. May wear compression stockings and elevate the legs. Decrease your sodium intake. Follow-up with your primary care doctor. Return to emergency room for any new or worsening symptoms. Critical care attestation.: If time is entered above; I have spent that time in minutes in the direct care of this critically ill patient, excluding procedure time. ED Disposition Clinical Impression: Left ankle swelling, Left leg pain Disposition: - TO HOME OR SELFCARE Is pt being admited?: No Does the pt Need Aspirin: No Condition: Stable Additional Instructions: May take Tylenol or ibuprofen as needed for discomfort. May wear compression stockings and elevate the legs. Decrease your sodium intake. Follow-up with your primary care doctor. Return to emergency room for any new or worsening symptoms. Referrals: ERI SCHAFER [Other] - 2-3 Days Time of Disposition: 15:10 Print Language: GREENLANDIC
--- NOTE | 2020-10-18 14:07 | Vascular Lab Report ---
DUPLEX DOPPLER LOWER EXTREMITY VEINS, LEFT INDICATION / CLINICAL INFORMATION: left leg swelling, calf pain. TECHNIQUE: Duplex doppler imaging was performed through the veins of the left lower extremity using venous compr ession and other maneuvers. COMPARISON: None available. FINDINGS: LEFT COMMON FEMORAL VEIN: Negative. LEFT FEMORAL VEIN: Negative. LEFT POPLITEAL VEIN: Negative. LEFT CALF VEINS: Negative. ADDITIONAL FINDINGS: None. IMPRESSION: 1. No sonographic evidence for DVT in the left lower extremity. Signer Name: Larry Jain MD Signed: 10/18/2020 2:03 PM Workstation Name: [email or web address]
--- NOTE | 2020-10-18 14:25 | XRay Report ---
Left ankle radiograph, 3 views HISTORY: Pain COMPARISON: None FINDINGS: No acute fracture or malalignment. Ankle mortise and talar dome are intact. There is mild s oft tissue swelling about the ankle, greatest medially. No soft tissue gas or radiopaque foreign body . IMPRESSION: Preferential medial ankle soft tissue swelling. No acute osseous abnormality. Signer Name: Diaz Martel MD Signed: 10/18/2020 2:20 PM Workstation Name: [id number]
[2020-10-18 14:44] LABS: Basophils % (Auto) 0.5 % (0.0-1.8); Eosinophils # (Auto) 0.1 K/mm3 (0.0-0.4); Eosinophils % (Auto) 1.5 % (0.0-4.3); Hematocrit 35.9 % (30.3-42.9); Hemoglobin 11.3 gm/dl (10.1-14.3); Lymphocytes # (Auto) 2.9 K/mm3 (1.2-5.4); Lymphocytes % (Auto) 37.1 % (13.4-35.0); Mean Corpuscular HGB Conc 31 % (30-34); Mean Corpuscular Volume 75 fl (79-97); Monocytes # (Auto) 0.7 K/mm3 (0.0-0.8); Monocytes % (Auto) 8.6 % (0.0-7.3); Platelet Count 356 K/mm3 (140-440); Red Blood Count 4.77 M/mm3 (3.65-5.03); Red Cell Distribution Width 16.7 % (13.2-15.2)
[2020-10-18 14:58] LABS: Alanine Aminotransferase 18 units/L (7-56); Albumin 4.2 g/dL (3.9-5); BUN/Creatinine Ratio 10; Blood Urea Nitrogen 8 mg/dL (7-17); Calcium 9.7 mg/dL (8.4-10.2); Hemolysis Index 5
== END 2020-10-18 15:14 | disposition home or self-care (01) ==
LOC: ED 10:07
DX: M79.605 Pain in left leg (principal); M79.89 Other specified soft tissue disorders; G43.909 Migraine, unspecified, not intractable, without status migrainosus; Z79.899 Other long term (current) drug therapy; Z88.0 Allergy status to penicillin; Z90.49 Acquired absence of other specified parts of digestive tract
CPT/HCPCS: 36415; 80053; 83880; 84703; 85025